=== PATIENT | male | born 1945 | race Two or more races ===

== ENCOUNTER 2020-03-21 14:44 | Outpatient (CLI) | payer OTHER | END 2020-03-21 14:54 | disposition home or self-care (01) | LOC: LAB 14:44 | DX: I31.3 Pericardial effusion (noninflammatory) (principal) ==

== ENCOUNTER 2020-03-22 10:09 | Outpatient (CLI) | payer OTHER | END 2020-03-22 10:30 | disposition home or self-care (01) | LOC: MRI 10:09 | DX: I63.30 Cerebral infarction due to thrombosis of unspecified cerebral artery (principal) | CPT/HCPCS: 70551 ==

== ENCOUNTER 2020-03-29 11:55 | Outpatient (CLI) | payer OTHER | END 2020-03-29 11:57 | disposition home or self-care (01) | LOC: NUCLEAR 11:55 | PROVIDERS: ATTEND Psychiatry & Neurology Clinical Neurophysiology | DX: I65.23 Occlusion and stenosis of bilateral carotid arteries (principal); I31.3 Pericardial effusion (noninflammatory) ==